=== PATIENT | female | born 1990 | race Caucasian/White ===

== ENCOUNTER → 2020-11-24 | Outpatient (CLI) | payer OTHER | LOC: MAMO 11:00 | DX: N60.19 Diffuse cystic mastopathy of unspecified breast (principal) | CPT/HCPCS: 77066; G0279 ==

== ENCOUNTER 2021-08-04 16:25 | Inpatient (IN) | payer OTHER ==
[~2021-08-04] VITALS: Ht 165.1 cm; Wt 55.3 kg
[2021-08-04 22:35] LABS: HEMOGLOBIN 14.8 gm/dl (12.3-15.3); RED BLOOD COUNT 4.47 M/UL (4.00-5.10); WHITE BLOOD COUNT 9.6 K/UL (4.5-11.0)
[2021-08-06 04:40] LABS: HEMOGLOBIN 12.8 gm/dl (12.3-15.3)
[2021-08-06] MEDS ORDERED: DOCUSATE SODIU100 MG PO (12:04)
[2021-08-06] MEDS ORDERED: HYDROCODON-ACE1 EAC4 PO (12:04)
[2021-08-06] MEDS ORDERED: IBUPROFEN600 MG PO (12:04)
== END 2021-08-06 12:58 | disposition home or self-care (01) | DRG 807 ==
LOC: GENOP 16:25 → OB 21:10
PROVIDERS: Obstetrics & Gynecology; ADMIT Obstetrics & Gynecology
PROC: 4A1HXCZ Monitoring of Products of Conception, Cardiac Rate, External Approach (ICD-10-PCS; 2021-08-04)
PROC: 10E0XZZ Delivery of Products of Conception, External Approach (ICD-10-PCS; principal; 2021-08-05)
PROC: 10907ZC Drainage of Amniotic Fluid, Therapeutic from Products of Conception, Via Natural or Artificial Opening (ICD-10-PCS; 2021-08-05)
DX: O62.9 Abnormality of forces of labor, unspecified (principal); Z37.0 Single live birth; Z3A.39 39 weeks gestation of pregnancy; Z20.822 Contact with and (suspected) exposure to COVID-19; O90.89 Other complications of the puerperium, not elsewhere classified; M53.3 Sacrococcygeal disorders, not elsewhere classified
CPT/HCPCS: 36415; 81001; 82800; 85014; 85018; 85025; 90715; J1885; J2590; J7120; U0002